=== PATIENT | male | born 1930 | race Caucasian/White ===

== ENCOUNTER 2021-05-09 21:05 | Observation (INO) | payer MEDICARE ==
[2021-05-09 21:36] LABS: #Eosinphils 0.1 10x3/uL (0.0-0.5); #Monocytes 0.6 10x3/uL (0.0-1.1); #Neutrophils 3.5 10x3/uL (1.5-8.4); %Basophils 0.6 % (0.0-2.0); %Eosinophils 0.9 % (0.0-6.0); %Lymphocytes 33.8 % (18.0-47.0); %Monocytes 9.6 % (0.0-10.0); %Neutrophils 54.8 % (40.0-75.0); Hemoglobin 13.7 g/dL (13.5-17.5); Mean Corpuscular HGB CONC 34.3 g/dL (32.0-36.0); Mean Corpuscular Hemoglobin 32.2 pg (27.0-33.0); Mean Corpuscular Volume 93.9 fl (81.2-95.1); Platelet Count 147 10x3/uL (150-450); RBC Distribution Width 13.2 % (11.5-14.5); Red Blood Cell (RBC) Count 4.25 10x6/uL (4.32-5.72); White Blood Cell (WBC) Count 6.4 10x3/uL (3.5-10.5)
[2021-05-09] MEDS ORDERED: Morphine 4 MG/ML VIAL ONE (21:41)
[2021-05-09] MEDS ORDERED: Aspirin Chewable 81 MG TAB ONE (21:41)
[2021-05-09] MEDS ORDERED: Fentanyl 100 MCG/2 ML VIAL ONE ×2 (21:46→23:32)
[2021-05-09 22:12] LABS: ALT (SGPT) 28 U/L (8-55); AST (SGOT) 33 U/L (5-34); Albumin 4.2 g/dL (3.4-4.8); Alkaline Phosphatase 48 U/L (40-110); Anion Gap 14 mmol/L (10-20); BUN (Urea Nitrogen) 22 mg/dL (8.4-25.7); Bilirubin, Total 0.9 mg/dL (0.2-1.2); Calc. Creatinine Clearance 0 mL/min (70-130); Calcium 9.2 mg/dL (7.8-10.44); Carbon Dioxide 25 mmol/L (23-31); Chloride 106 mmol/L (98-107); Globulin 2.6 g/dL (2.4-3.5); Glucose 118 mg/dL (83-110); Potassium 4.1 mmol/L (3.5-5.1); Protein, Total 6.8 g/dL (5.8-8.1); Sodium 141 mmol/L (136-145)
[2021-05-10] MEDS ORDERED: Nitroglycerin 0.4 MG TAB (25 Tab Bottle) SL PRN (02:39)
[2021-05-10] MEDS ORDERED: Fentanyl 100 MCG/2 ML VIAL SLOW IVP PRN (02:42)
[2021-05-10] MEDS ORDERED: Acetaminophen 500 MG TAB PO SCH (03:00)
[2021-05-10 03:42] VITALS: BMI 25.4
[2021-05-10 05:13] LABS: Anion Gap 11 mmol/L (10-20); BUN (Urea Nitrogen) 21 mg/dL (8.4-25.7); Calc. Creatinine Clearance 52 mL/min (70-130); Calcium 8.9 mg/dL (7.8-10.44); Carbon Dioxide 26 mmol/L (23-31); Cardiac Risk 2.6 (Less than 4.5); Chloride 107 mmol/L (98-107); Cholesterol 111 mg/dl (< 200 Desired); Glucose 115 mg/dL (83-110); HDL Cholesterol 43 mg/dL (>60 Neg Risk); LDL Cholesterol, Calculated 48 mg/dL; Magnesium 1.9 mg/dL (1.6-2.6); Potassium 3.8 mmol/L (3.5-5.1); Sodium 140 mmol/L (136-145); Triglycerides 101 mg/dL (Less than 150)
[2021-05-10 05:19] LABS: Troponin I 0.018 ng/mL (< 0.028)
[2021-05-10] MEDS ORDERED: Losartan Potassium 50 MG TAB PO SCH (09:00)
[2021-05-10] MEDS ORDERED: Calcium Carbonate 600 MG TAB PO SCH (09:00)
[2021-05-10] MEDS ORDERED: Cholecalciferol 1,000 UNITS (25 MCG) TAB PO SCH (09:00)
[2021-05-10] MEDS ORDERED: Ezetimibe 10 MG TAB PO SCH (09:00)
[2021-05-10] MEDS ORDERED: Zinc Sulfate 220 MG CAP PO SCH (09:00)
[2021-05-10] MEDS ORDERED: Enoxaparin Sodium 40 MG/0.4 ML SYRINGE SC SCH (09:00)
[2021-05-10] MEDS ORDERED: Magnesium Oxide 400 MG TAB PO SCH (09:00)
[2021-05-10] MEDS ORDERED: Clopidogrel Bisulfate 75 MG TAB PO SCH (09:00)
[2021-05-10] MEDS ORDERED: Ascorbic Acid 500 mg Chewable Tablet PO SCH (09:00)
[2021-05-10 15:41] LABS: SARS-CoV-2 PCR by NAA Not Detected (NotDetected)
[2021-05-10 15:55] VITALS: BP 178/80; TEMP 98
[2021-05-10] MEDS ORDERED: Atorvastatin Calcium 40 MG TAB PO SCH (21:00)
== END 2021-05-10 18:08 | disposition home or self-care (01) ==
LOC: CSHERS 21:05 → CSHTELE 05-10 02:52
PROVIDERS: ADMIT Family Medicine; ATTEND Physician Assistant
DX: R07.89 Other chest pain (principal); I25.10 Atherosclerotic heart disease of native coronary artery without angina pectoris; I12.9 Hypertensive chronic kidney disease with stage 1 through stage 4 chronic kidney disease, or unspecified chronic kidney disease; N18.32 Chronic kidney disease, stage 3b; Z79.899 Other long term (current) drug therapy; Z95.1 Presence of aortocoronary bypass graft; Z87.891 Personal history of nicotine dependence; Z20.822 Contact with and (suspected) exposure to COVID-19
CPT/HCPCS: 71045; 80048; 80053; 80061; 83735; 84484 ×3; 85025; 93005; 93306; 96372; 96374; 96376; 99285; G0378; U0003; U0005; 36415; J1650; J2270; J3010